=== PATIENT | male | born 1975 | race Caucasian/White ===

== ENCOUNTER 2020-04-30 22:58 | Emergency (ER) | payer OTHER ==
[2020-04-30 23:41] LABS: HEMOGLOBIN 13.2 gm/dl (14.0-17.5); RED BLOOD COUNT 4.32 M/UL (4.20-5.50); WHITE BLOOD COUNT 6.2 K/UL (4.5-11.0)
[2020-04-30 23:55] LABS: BUN/CREATININE RATIO 22 (0-10)
== END 2020-05-01 03:45 ==
LOC: ER1 22:58
PROVIDERS: Physician Assistant
DX: F15.129 Other stimulant abuse with intoxication, unspecified (principal); S20.319A Abrasion of unspecified front wall of thorax, initial encounter; F17.210 Nicotine dependence, cigarettes, uncomplicated; X58.XXXA Exposure to other specified factors, initial encounter
CPT/HCPCS: 70450; 71045; 71250; 80053; 80307; 82550; 82553; 83874; 84484; 85025; 93005; 96374; 99285; G0480

== ENCOUNTER 2020-05-03 23:24 | Emergency (ER) | payer OTHER ==
[2020-05-04] LABS: HEMOGLOBIN 14.6 gm/dl (14.0-17.5); RED BLOOD COUNT 4.8 M/UL (4.20-5.50); WHITE BLOOD COUNT 4.6 K/UL (4.5-11.0)
[2020-05-04] MEDS ORDERED: CYCLOBENZAPRINE10 MG PO (00:04)
[2020-05-04] MEDS ORDERED: IBUPROFEN600 MG PO (00:04)
[2020-05-04 00:19] LABS: BUN/CREATININE RATIO 23 (0-10)
== END 2020-05-04 03:24 | disposition home or self-care (01) ==
LOC: ER1 23:24
PROVIDERS: Internal Medicine
DX: R56.9 Unspecified convulsions (principal); F17.210 Nicotine dependence, cigarettes, uncomplicated
CPT/HCPCS: 70450; 71045; 80053; 85025; 96365; 96366; 96372; 96375; 99284; J1200; J1630; J1953; J2060

== ENCOUNTER 2020-12-19 22:22 | Emergency (ER) | payer OTHER ==
[~2020-12-19 22:22] MED LIST: CYCLOBENZAPRINE10 MG PO; IBUPROFEN600 MG PO
[2020-12-20 00:04] LABS: HEMOGLOBIN 13.7 gm/dl (14.0-17.5); RED BLOOD COUNT 4.46 M/UL (4.20-5.50)
[2020-12-20 00:28] LABS: BUN/CREATININE RATIO 27 (0-10)
[2020-12-20] MEDS ORDERED: MOBIC15 MG PO (02:47)
[2020-12-20] MEDS ORDERED: CYCLOBENZAPRINE10 MG PO (02:47)
== END 2020-12-20 03:00 | disposition home or self-care (01) ==
LOC: ER1 22:22
PROVIDERS: Physician Assistant
DX: R07.89 Other chest pain (principal); R79.89 Other specified abnormal findings of blood chemistry; F17.200 Nicotine dependence, unspecified, uncomplicated
CPT/HCPCS: 71045; 80053; 82550; 82553; 83690; 83874; 84484; 85025; 85379; 93005; 99285

== ENCOUNTER 2021-09-01 22:11 | Emergency (ER) | payer OTHER ==
[~2021-09-01 22:11] MED LIST changes: +MOBIC15 MG PO
== END 2021-09-02 03:41 | disposition left against medical advice (07) ==
LOC: ER1 22:11
DX: S01.01XA Laceration without foreign body of scalp, initial encounter (principal); S16.1XXA Strain of muscle, fascia and tendon at neck level, initial encounter; F17.200 Nicotine dependence, unspecified, uncomplicated; Z23 Encounter for immunization; W19.XXXA Unspecified fall, initial encounter; Y92.89 Other specified places as the place of occurrence of the external cause; Y99.0 Civilian activity done for income or pay
CPT/HCPCS: 90471; 96372; 99283; J1200

== ENCOUNTER 2021-09-02 21:22 | Emergency (ER) | payer OTHER | END 2021-09-03 06:09 | disposition home or self-care (01) | LOC: ER1 21:22 | DX: R51.9 Headache, unspecified (principal); F17.200 Nicotine dependence, unspecified, uncomplicated | CPT/HCPCS: 96372; 96374; 99283; J1630; J1885 ==